=== PATIENT | male | born 1940 | race Caucasian/White ===

== ENCOUNTER 2016-09-12 10:19 | Inpatient (IN) ==
[2016-09-06 12:59] LABS: Appearance,Urine CLEAR; Bilirubin,Urine NEG (NEG); Color,Urine YELLOW; Glucose,Urine (UA) NEGATIVE (NEG); Leukocyte Esterase,Urine NEG /uL (NEG); Nitrate,Urine NEG (NEG); Protein,Urine NEG (NEG); Urine Blood NEG mg/dL (<0.03); Urobilinogen,Urine NEG (NEG)
[2016-09-06 14:04] LABS: Basophils # (Auto) 0 K/mcL (0.0-0.3); Basophils % (Auto) 0 % (0.0-2.0); Eosinophils # (Auto) 0.4 K/mcL (0.0-0.7); Eosinophils % (Auto) 3.9 % (0.0-7.0); Granulocytes % (Auto) 62.2 % (38.0-78.0); Lymphocytes # (Auto) 2.5 K/mcL (1.5-4.8); Lymphocytes % (Auto) 26.7 % (15.5-49.0); Mean Cell Volume 88.8 fL (80.0-100.0); Mean Corpuscular HGB Conc 33.1 g/dL (31.0-36.0); Mean Corpuscular Hemoglobin 29.4 pg (26.0-34.0); Monocytes # (Auto) 0.7 K/mcL (0.1-0.9); Monocytes % (Auto) 7.2 % (1.0-9.0); Platelet Count 286 K/mcL (140-440)
[2016-09-06 14:16] LABS: Blood Urea Nitrogen 24 mg/dl (8-23)
[~2016-09-12 10:19] MED LIST: CELECOXIB 200 MG CAPSULE PO SCH; GABAPENTIN 300 MG CAPSULE PO SCH; KETOROLAC 30 MG, ROPIVACAINE HCL/PF 49.5 ML, EPINEPHrine 0.5 MG, 0.9 % SODIUM CHLORIDE ... IJ ONE; ceFAZolin 1 GM VIAL IV SCH
[2016-09-12] MEDS ORDERED: MIDAZOLAM 5 MG/5 ML VIAL IV ONE (13:00)
[2016-09-12] MEDS ORDERED: ROPIVACAINE HCL/PF 30 ML VIAL IJ ONE (13:00)
[2016-09-12] MEDS ORDERED: ONDANSETRON 4 MG/2 ML VIAL IV ONE (13:00)
[2016-09-12] MEDS ORDERED: KETAMINE 100 MG/ML ML IV ONE (13:00)
[2016-09-12] MEDS ORDERED: fentaNYL 100 MCG/2 ML VIAL IV ONE ×2 (13:00→14:07)
[2016-09-12] MEDS ORDERED: TRANEXAMIC ACID 1,000 MG/10 ML VIAL IV ONE ×2 (13:00→15:08)
[2016-09-12] MEDS ORDERED: LIDOCAINE HCL/PF 100 MG/5 ML SYRINGE IV ONE (13:00)
[2016-09-12] MEDS ORDERED: PHENYLEPHRINE 10 MG/ML VIAL IV ONE (13:00)
[2016-09-12] MEDS ORDERED: PROPOFOL 200 MG/20 ML VIAL IV ONE (13:00)
[2016-09-12] MEDS ORDERED: GENTAMICIN SULFATE 800 MG/20 ML VIAL IR ONE (13:53)
[2016-09-12] MEDS ORDERED: ePHEDrine 50 MG/ML AMPUL IV PRN (14:07)
[2016-09-12] MEDS ORDERED: LABETALOL 5 MG/ML ML IV PRN (14:07)
[2016-09-12] MEDS ORDERED: MEPERIDINE 25 MG/ML SYRINGE IV PRN (14:07)
[2016-09-12] MEDS ORDERED: IPRATROPIUM/ALBUTEROL 3 ML AMPUL.NEB NEB PRN (14:07)
[2016-09-12] MEDS ORDERED: BENZOCAINE/MENTHOL 1 LOZENGE PO PRN ×2 (14:07→15:08)
[2016-09-12] MEDS ORDERED: PROMETHAZINE 25 MG/ML VIAL IV PRN (14:07)
[2016-09-12] MEDS ORDERED: METHOCARBAMOL 1,000 MG/10 ML VIAL IV PRN (14:07)
[2016-09-12] MEDS ORDERED: LACTATED RINGERS 1,000 ML IV SCH (14:15)
[2016-09-12] MEDS: fentaNYL 100 MCG/2 ML VIAL IV PRN ×4 (15:00→15:15)
[2016-09-12] MEDS ORDERED: ONDANSETRON 4 MG/2 ML VIAL IV PRN (15:08)
[2016-09-12] MEDS ORDERED: HYDROmorphone 2 MG/ML SYRINGE IV PRN (15:08)
[2016-09-12] MEDS ORDERED: BISACODYL 10 MG SUPP.RECT PR PRN (15:08)
[2016-09-12] MEDS ORDERED: POLYETHYLENE GLYCOL 3350 17 GM PACKET PO PRN (15:08)
[2016-09-12] MEDS ORDERED: METHOCARBAMOL 750 MG TABLET PO PRN (15:08)
[2016-09-12] MEDS ORDERED: FLEETS ADULT ENEMA PR PRN (15:08)
[2016-09-12] MEDS ORDERED: MAGNESIUM HYDROXIDE 30 ML ORAL.SUSP PO PRN (15:08)
--- NOTE | 2016-09-12 15:08 | Brief Operative Note ---
Date of procedure: 09/12/16 Pre-op diagnosis: right knee oa Post-op diagnosis: same Procedure: right total knee arthroplasty Grafts/Implants: Yes Anesthesia: spinal Complications: none Surgeon: Shaun Shankar Host/Hostess Ground: Christoph Quarles Estimated blood loss (cc): 100 Tourniquet Time (Minutes): 52 Specimens Removed/Pathology: none sent Condition: stable Disposition: PACU
[2016-09-12] MEDS: HYDROmorphone 2 MG/ML SYRINGE IV PRN ×3 (15:20→15:40)
[2016-09-12] MEDS ORDERED: NON FORMULARY MEDICATION 1 DOSE MISCELL (Epinephrine [Epipen 2-Pak] 0.3 MG) IJ PRN (15:27)
[2016-09-12] MEDS ORDERED: DEXTROSE 50% 50 ML VIAL IV PRN (15:32)
--- NOTE | 2016-09-12 15:49 | XRay Report ---
CLINICAL INFORMATION: Postop total knee prostheses COMPARISON: None. FINDINGS: Total knee prostheses is anatomically aligned. There is no osseous abnormality. Soft tissue swelling seen as expected IMPRESSION: Negative Interpreted and Authenticated by: Shaun Aden 09/12/16
--- NOTE | 2016-09-12 16:52 | Operative Note ---
DATE OF OPERATION: 09/12/2016 PREOPERATIVE DIAGNOSIS: Degenerative joint disease, right knee. POSTOPERATIVE DIAGNOSIS: Degenerative joint disease, right knee. PROCEDURE: Right total knee arthroplasty. SURGEON: Rica Shankar M.D. [employer] SURGEON: Christoph Quarles PA-C. ANESTHESIA: Spinal with LMA assist. ESTIMATED BLOOD LOSS: 150 mL. COMPLICATIONS: None noted. SPECIMENS REMOVED: None. DRAINS: None. TOURNIQUET TIME: 52 minutes at 300 mmHg. IMPLANTS: DePuy CMW2 gentamicin bone cement 20 grams x4; DePuy Attune tibial base fixed bearing size 5 cemented; DePuy Attune patella medialized dome 35 mm cemented AOX; DePuy Attune femoral posterior stabilized size 6 right cemented; DePuy Attune insert size 6, 5 mm thickness. INDICATIONS: The patient has had a long-standing history of worsening pain in the knee that has failed conservative treatment. Radiographs have confirmed advanced degenerative joint disease. After a long discussion about treatment options, the patient elected to proceed with a knee arthroplasty. The risks and benefits were discussed with the patient in detail including, but not limited to, the risks of anesthesia, problems with the heart or lungs related to anesthesia, infection, compromise or injury to the nerves and blood vessels, deep venous thrombosis, pulmonary embolism, pneumonia, continued pain after surgery, worsening pain or symptoms after surgery, swelling, loss of motion, instability, leg length discrepancy, and need for repeat surgery. DESCRIPTION OF PROCEDURE: The patient was seen in the pre-anesthesia waiting room where all questions were answered and the correct side and site were identified and marked. The patient was transferred to the operating room and administered the anesthetic and given pre-operative antibiotics. A time-out was then called. The extremity was prepped and draped, exsanguinated, and the tourniquet was inflated to 300 mmHg. A midline skin incision was then made with a standard medial parapatellar arthrotomy. Debridement of the menisci, ACL, and PCL was performed followed by balancing releases in the medial lateral plane. We then established intramedullary access to both the femur and tibia in a standard fashion. The femoral guide lester was initially placed with the distal femoral guide, pinned into place, and the distal femoral cut was performed and checked with a flat plate. We then turned our attention to the tibia. The intramedullary guide was placed with the proximal tibial cutting block. The block was appropriately positioned off the affected side, varus and valgus was checked with the extra-medullary guide, and the block was pinned into place. The proximal tibial cut was performed and the tibia was prepared for the tibial implant with appropriate rotation. The tibia, femur, and posterior compartment were debrided of osteophytes, loose bodies, and meniscal fragments. We then used the gap balancing technique to balance extension with the first two cuts and good balancing was obtained with a 10 millimeter gap block. We turned our attention back to the femur and used the referencing block and implant to size appropriately. Using the gap balancing technique for the flexion space we set our rotation of the femur off the tibial cut. Anesthesia gave the patient 1 gram of Tranexamic Acid via an intravenous route. We placed the 4 in 1 cutting block and made anterior, posterior, and chamfer cuts. Box plasty cuts were then made in a standard fashion for the posterior stabilized prosthesis. We then completed osteophyte release and posterior capsule release from the posterior compartment. Trials were placed and we chose the polyethylene insert thickness that provided the best stability in all planes. With the trials in place, we did a measured resection for a resurfacing patella. We sized the patella and placed the patella trial and performed a lateral facetectomy with the saw and rongeur. We did a small lateral release. Good tracking was obtained. We removed all trials, irrigated and dried all cut surfaces. We cemented the components into place including tibia, femur and patella. We placed a trial liner and held the knee in full extension with the patella compressed while the cement cured. We then removed all excess cement and placed the final polyethylene tibiofemoral component. Irrigation with 3 liters of antibiotic saline was then performed using jet-lavage. We let the tourniquet down and coagulated bleeding vessels. We injected a 100 cubic centimeter volume including Ropivacaine 49.25 cubic centimeters at 5 milligrams per cubic centimeter, Ketorolac 30 milligrams, and Epinephrine 0.5 milligrams into 100 cubic centimeters volume of normal saline. We placed a deep drain and closed the retinaculum with looped #0 Maxon. We closed the subcutaneous tissue and skin in layers out to katiana in the skin. A sterile pressure dressing was applied. All needle and sponge counts were correct. The patient was transferred to the recovery room in stable condition. BRIAN:mason Job ID: [id number] Doc ID: [id number] Rica Shankar MD
[2016-09-12] MEDS: HYDROcodone/APAP 10/325MG TABLET PO PRN (17:00)
[2016-09-12] MEDS: WARFARIN 5 MG TABLET PO SCH (17:17)
[2016-09-12] MEDS: metFORMIN 500 MG TABLET PO SCH ×2 (17:42→21:58)
[2016-09-12] MEDS: INSULIN LISPRO 1 UNIT/0.01 ML UNIT SQ SCH ×2 (17:44→22:06)
[2016-09-12] MEDS: DOCUSATE SODIUM 100 MG CAPSULE PO SCH (21:11)
[2016-09-12] MEDS: SENNOSIDES 1 TABLET PO SCH (21:11)
[2016-09-12] MEDS: GABAPENTIN 300 MG CAPSULE PO SCH (21:11)
[2016-09-12] MEDS: ceFAZolin 1 GM VIAL IV SCH (22:00)
[2016-09-12] MEDS: 0.9 % SODIUM CHLORIDE 1,000 ML IV SCH ×2 (22:05→23:32)
[2016-09-12] MEDS: 0.9 % SODIUM CHLORIDE 10 ML SYRINGE IV SCH (22:05)
[2016-09-13] MEDS: HYDROcodone/APAP 10/325MG TABLET PO PRN ×2 (04:25→08:55)
[2016-09-13] MEDS: ceFAZolin 1 GM VIAL IV SCH (04:26)
[2016-09-13] MEDS: 0.9 % SODIUM CHLORIDE 10 ML SYRINGE IV SCH ×3 (04:26→20:39)
[2016-09-13] MEDS: 0.9 % SODIUM CHLORIDE 1,000 ML IV SCH ×2 (07:15→14:43)
[2016-09-13] MEDS: INSULIN LISPRO 1 UNIT/0.01 ML UNIT SQ SCH ×4 (07:31→20:37)
--- NOTE | 2016-09-13 07:56 | Discharge Summary ---
Providers - Providers Patient information: Note initiated : 09/13/16 at 7:54 am Service Date, if different from initiated Date: [] Patient: Kyle Montana 76 y/o M admitted on 09/12/16 for Right Total Knee Arthroplasty. Chief Complaint: [] Date of admission: 09/12/16 Discharge date: 09/13/16 Attending physician: Shaun Shankar Hospitalization Hospital course: Patient underwent a right TKA and tolerated the procedure well. Was doing great PO day 1. Only issue was that he wasn't urinating on his own yet. He stated that he wanted to go home. As long as he can begin urinating than I told him he could go home. No complaints. Denied calf pain, chest pain, SOB. Discharge diagnosis: Right total knee arthroplasty Reason for admission: Right degenerative joint disease Exam - Exam Incision healing: Yes Incision draining: No Incision red: No Incision swollen: No Incision inflamed: No Clean and dry: Yes Weight bearing status: as tolerated Ortho Discharge - TKA - Patient Instructions Diet: Regular Diet Activity: activity as tolerated, weight bearing as tolerated Total Knee Protocol: For Total Knee: Start ROM NICOLA with stationary bike or rocking chair. Work on gaining full extension of knee. Posterior dislocation precautions provided. Hip abductor strengthening and gait training instructions provided. Apply Cryocuff as instructed. Dressing Care: May shower in 2 days Additional Dressing Instructions: Leave dermabond mesh dressing intact - Follow Up Plan Disposition: Home, Self-Care Prognosis: Good Rehab Potential: Good I certify that the patient requires SNF services: No Overall status at discharge: patient is progressing back to baseline - Orders For Discharge Prescriptions: Docusate Sodium [Colace] 100 mg PO BID #30 capsule HYDROcodone/APAP 10/325MG [Haswell 10/325Mg] 1 - 2 tab PO Q4HP PRN #60 tablet PRN Reason: Pain Warfarin [Coumadin] 5 mg PO DAILY@1400 #30 tablet Pending Studies Resuscitation Status Full Code Diet Regular Diet Start SunSep 12 Dinner Acetaminophen/Hydrocodone Bitart (Haswell 10/325mg) 0 tab PO Q4HP PRN PRN Reason: Pain Last Admin: 09/13/16 04:25 Dose: 2 tab Admin: 09/12/16 17:00 Dose: 2 tab Diagnostic Test (Pha) (Accu-Chek) 1 each FS ACHS LEDY Last Admin: 09/13/16 07:29 Dose: 1 each Admin: 09/12/16 22:05 Dose: 1 each Admin: 09/12/16 17:43 Dose: Docusate Sodium (Colace) 100 mg PO BID [facility] Last Admin: 09/12/16 21:11 Dose: 100 mg Gabapentin (Neurontin) 600 mg PO TID [facility] Last Admin: 09/12/16 21:11 Dose: 600 mg Hydromorphone HCl (Dilaudid) 0 mg IV Q2HP PRN PRN Reason: Pain Last Admin: 09/12/16 16:58 Dose: 1 mg Sodium Chloride (Sodium Chloride 0.9%) 1,000 mls @ 125 mls/hr IV .Q8H [facility] Last Admin: 09/12/16 23:32 Dose: Not Given Admin: 09/12/16 22:05 Dose: 125 mls/hr Insulin Human Lispro (Humalog) 0 unit SQ [facility] PRN Reason: Protocol Last Admin: 09/13/16 07:31 Dose: 2 unit Admin: 09/12/16 22:06 Dose: Not Given Admin: 09/12/16 17:44 Dose: Metformin HCl (Glucophage) 500 mg PO BIDCC [facility] Last Admin: 09/12/16 21:58 Dose: 500 mg Admin: 09/12/16 17:42 Dose: Senna (Senokot) 2 tab PO HS [facility] Last Admin: 09/12/16 21:11 Dose: 2 tab Sodium Chloride (Saline Flush) 10 ml IV Q8 [facility] Last Admin: 09/13/16 04:26 Dose: Not Given Admin: 09/12/16 22:05 Dose: Not Given Warfarin Sodium (Coumadin) 5 mg PO DAILY@1400 [facility] Last Admin: 09/12/16 17:17 Dose: 5 mg Shift Summary 09/13/16 02:30 Shift Summary by Woody Stack Pt a&O x4, VSS SaO2 >90% 2L. Can maintain on RA, but uses o2 as substitute for cpap. Pt up SBA to bathroom, although has been unable to void. BS at 2100 443ml and again at 0000 540ml. Straight cath for 425ml. Pt denies any symptoms of full bladder. Minimal c/o pain throughout the night and has not been medicated with any pain meds at this time. Dressing to right leg CDI, CMS WNL for Pt. 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 BG 159 and metformin given with dinner at around 2100. New IV placed in right wrist. in room. Will update further at bedside. Initialized on 09/13/16 02:30 - END OF NOTE
[2016-09-13] MEDS: DILTIAZEM 120 MG CAP.XL.24H PO SCH (08:21)
[2016-09-13] MEDS: GABAPENTIN 300 MG CAPSULE PO SCH ×3 (08:22→20:37)
[2016-09-13] MEDS: POTASSIUM CHLORIDE 10 MEQ TABLET PO SCH (08:22)
[2016-09-13] MEDS: DOCUSATE SODIUM 100 MG CAPSULE PO SCH ×2 (08:22→20:37)
[2016-09-13] MEDS: metFORMIN 500 MG TABLET PO SCH ×2 (08:22→17:03)
[2016-09-13] MEDS: CYANOCOBALAMIN (VITAMIN B-12) 500 MCG TABLET PO SCH (08:22)
[2016-09-13] MEDS: LOSARTAN 50 MG TABLET PO SCH (08:22)
[2016-09-13] MEDS: NIACIN 250 MG CAP.SR.12H PO SCH (08:23)
[2016-09-13] MEDS: FERROUS GLUCONATE 324 MG TABLET PO SCH (08:23)
[2016-09-13] MEDS: FUROSEMIDE 20 MG TABLET PO SCH (08:23)
[2016-09-13] MEDS ORDERED: WARFARIN 4 MG TABLET PO SCH (09:00)
[2016-09-13] MEDS: TAMSULOSIN 0.4 MG CAPSULE PO SCH ×2 (10:24→20:50)
[2016-09-13] MEDS: VITAMIN D3 1,000 UNIT TABLET PO SCH (12:43)
[2016-09-13] MEDS: WARFARIN 5 MG TABLET PO SCH (13:53)
[2016-09-13] MEDS: IBUPROFEN 800 MG TABLET PO PRN (19:14)
[2016-09-13] MEDS: SENNOSIDES 1 TABLET PO SCH (20:37)
[2016-09-14] MEDS: 0.9 % SODIUM CHLORIDE 1,000 ML IV SCH (00:13)
[2016-09-14] MEDS: 0.9 % SODIUM CHLORIDE 10 ML SYRINGE IV SCH (04:10)
[2016-09-14] MEDS: IBUPROFEN 800 MG TABLET PO PRN (05:16)
--- NOTE | 2016-09-14 06:17 | Orthopedic Progress Note ---
Subjective Patient information: Note initiated : 09/14/16 at 6:15 am Service Date, if different from initiated Date: [] Patient: Kyle Montana 76 y/o M admitted on 09/12/16 for Right Total Knee Arthroplasty. Chief Complaint: [] Interval history: doing ok. painful Objective Vital signs: Vital Signs Temp Pulse Pulse Resp BP BP Pulse Ox 09/14/16 02:56 98.0 F 83 16 114/76 94 09/13/16 23:20 99.4 F 83 16 106/67 96 09/13/16 22:15 99.8 F H 09/13/16 21:30 100.4 F H 09/13/16 20:35 101.4 F H 09/13/16 20:10 101.8 F H 09/13/16 19:15 101.9 F H 95 H 16 111/72 91 09/13/16 16:00 97.6 F 84 16 109/71 94 09/13/16 12:00 99.0 F 67 20 90/56 92 09/13/16 07:55 67 16 95 09/13/16 07:38 98.7 F 67 20 100/71 94 Intake and Output 09/13/16 09/14/16 09/14/16 21:59 05:59 13:59 Intake Total 700 / 700 150 / 150 Output Total 750 / 750 Balance 700 / 700 -600 / -600 Intake: Oral 700 / 700 150 / 150 Output: Urine Catheter Amount 750 / 750 Other: Weight 193 lb 8 oz Intake & Output: Intake & Output 09/13/16 09/14/16 09/14/16 21:59 05:59 13:59 Intake Total 700 / 700 150 / 150 Output Total 750 / 750 Balance 700 / 700 -600 / -600 Weight 193 lb 8 oz Intake: Oral 700 / 700 150 / 150 Output: Urine Catheter Amount 750 / 750 Incision: Yes inflamed, Yes clean and dry Incision clean and dry: Yes Dressing: Yes clean, Yes dry, Yes intact Weight bearing status: full Neurological exam IM: Yes alert, Yes normal gait, Yes oriented X3, Yes motor sensory intact, Yes neurovascular intact Extremities exam IM: Yes neurovascular intact - Labs CBC & BMP: 09/14/16 04:40 09/06/16 11:29 Labs: Orthopedic Labs 09/14/16 09/13/16 09/06/16 04:40 04:45 11:29 PT 21.8 H 19.8 H 18.2 H INR 1.8 H 1.6 H 1.5 H 09/14/16 09/13/16 09/06/16 04:40 04:45 11:29 Hgb 9.6 L 11.2 L 14.4 Hct 29.6 L 33.8 L 43.5 Assessment and Plan (1) Knee osteoarthritis pod 2 s/p tka pain control pt d/c planning dvt prophylaxis Status: Acute
[2016-09-14] MEDS ORDERED: HYDROcodone/APAP 5/325MG TABLET PO PRN (06:24)
[2016-09-14] MEDS: traMADol 50 MG TABLET PO PRN ×2 (07:21→10:17)
[2016-09-14] MEDS: INSULIN LISPRO 1 UNIT/0.01 ML UNIT SQ SCH ×2 (09:01→11:47)
[2016-09-14] MEDS: DILTIAZEM 120 MG CAP.XL.24H PO SCH (09:08)
[2016-09-14] MEDS: LOSARTAN 50 MG TABLET PO SCH (09:09)
[2016-09-14] MEDS: POTASSIUM CHLORIDE 10 MEQ TABLET PO SCH (09:09)
[2016-09-14] MEDS: FUROSEMIDE 20 MG TABLET PO SCH (09:09)
[2016-09-14] MEDS: CYANOCOBALAMIN (VITAMIN B-12) 500 MCG TABLET PO SCH (09:09)
[2016-09-14] MEDS: DOCUSATE SODIUM 100 MG CAPSULE PO SCH (09:09)
[2016-09-14] MEDS: metFORMIN 500 MG TABLET PO SCH (09:09)
[2016-09-14] MEDS: GABAPENTIN 300 MG CAPSULE PO SCH (09:10)
[2016-09-14] MEDS: NIACIN 250 MG CAP.SR.12H PO SCH (09:16)
[2016-09-14] MEDS: FERROUS GLUCONATE 324 MG TABLET PO SCH (09:16)
[2016-09-14] MEDS: VITAMIN D3 1,000 UNIT TABLET PO SCH (11:46)
[2016-09-14] MEDS ORDERED: WARFARIN 4 MG TABLET PO ONE (14:00)
== END 2016-09-14 13:20 | disposition home or self-care (01) | DRG 470 ==
LOC: MEDSUR 10:19
PROVIDERS: ADMIT Orthopaedic Surgery Sports Medicine; ATTEND Orthopaedic Surgery Sports Medicine